=== PATIENT | female | born 1990 | race Caucasian/White ===

== ENCOUNTER 2023-12-01 11:50 | Emergency (ER) | payer MEDICAID ==
[2023-12-01] MEDS ORDERED: Sodium Chloride 0.9% 10 ML Syringe FLUSH PRN (12:11)
[2023-12-01 12:19] LABS: BASOPHILS ABSOLUTE AUTO 0.03 K/uL (0.02-0.10); BASOPHILS PERCENT AUTO 0.3 % (0.0-0.5); EOSINOPHILS ABSOLUTE AUTO 0.15 K/uL (0.04-0.40); EOSINOPHILS PERCENT AUTO 1.7 % (1.0-5.0); HEMATOCRIT 36.3 % (37.0-47.0); HEMOGLOBIN 12.4 g/dL (11.5-16.5); LYMPHOCYTES ABSOLUTE AUTO 2.62 K/uL (1.50-4.00); LYMPHOCYTES PERCENT AUTO 30.1 % (20.0-40.0); MEAN CORPUSCULAR HEMOGLOBIN 29.2 pg (27.0-32.0); MEAN CORPUSCULAR HGB CONC 34.2 g/dL (31.0-35.0); MEAN CORPUSCULAR VOLUME 85 fL (76-96); MEAN PLATELET VOLUME 9.6 fL (6.0-10.0); MONOCYTES ABSOLUTE AUTO 0.65 K/uL (0.20-0.80); MONOCYTES PERCENT AUTO 7.5 % (3.0-10.0); NEUTROPHILS ABSOLUTE AUTO 5.26 K/uL (2.00-7.50); NEUTROPHILS PERCENT AUTO 60.4 % (45.0-70.0); PLATELET COUNT,PLT 273 K/uL (150-500); RED BLOOD CELL COUNT 4.25 M/uL (3.80-5.80); RED CELL DISTRIBUTION WIDTH 13.3 % (11.0-16.0); WHITE BLOOD CELL COUNT,WBC 8.7 K/uL (4.0-11.0)
[2023-12-01 12:43] LABS: ALANINE AMINOTRANSFERASE,ALT 18 U/L (12-78); ALBUMIN 3.5 g/dL (3.4-5.0); ALKALINE PHOSPHATASE 67 U/L (46-116); ANION GAP 12.9 mmol/L (5.0-15.0); ASPARTATE AMNIOTRANSFERASE,AST 14 U/L (15-37); BILIRUBIN TOTAL 0.5 mg/dL (0.0-1.0); BLOOD UREA NITROGEN,BUN 11 mg/dL (8-26); BUN/CREATININE RATIO 11.3 (6-25); CALCIUM 8.4 mg/dL (8.5-10.1); CHLORIDE,CL 103 mmol/L (98-107); CREATININE 0.97 mg/dL (0.55-1.02); ESTIMATED GFR 79 mL/min (>60); GLUCOSE RANDOM 89 mg/dL (74-100); POTASSIUM,K 3.9 mmol/L (3.5-5.1); SODIUM,NA 138 mmol/L (136-145)
[2023-12-01] MEDS: Ibuprofen 600 MG Tab ONE (13:00)
[2023-12-01] MEDS ORDERED: Ibuprofen 600 MG Tab ONE (13:30)
== END 2023-12-01 13:40 | disposition home or self-care (01) ==
LOC: LB.ED 11:50
DX: S86.912A Strain of unspecified muscle(s) and tendon(s) at lower leg level, left leg, initial encounter (principal); F17.210 Nicotine dependence, cigarettes, uncomplicated; Z88.0 Allergy status to penicillin; Z88.1 Allergy status to other antibiotic agents; X58.XXXA Exposure to other specified factors, initial encounter
CPT/HCPCS: 36415; 80053; 84703; 85025; 85379; 99283; A9270